=== PATIENT | male | born 1965 | race Hispanic/Latino ===

== ENCOUNTER 2017-07-05 10:52 | Emergency (ER) | payer BC ==
[2017-07-05] MEDS ORDERED: Lidocaine 1% (PF) 30 ML VIAL ONE (11:30)
[2017-07-05] MEDS ORDERED: Bacitracin Zinc 1 Packet ONE (13:21)
== END 2017-07-05 13:42 | disposition home or self-care (01) ==
LOC: ERS 10:52
DX: S91.312A Laceration without foreign body, left foot, initial encounter (principal); W18.2XXA Fall in (into) shower or empty bathtub, initial encounter
CPT/HCPCS: 12002; J2001

== ENCOUNTER 2017-08-31 19:57 | Emergency (ER) | payer BC ==
[2017-08-31 20:36] LABS: #Basophils 0.1 thou/uL (0.0-0.2); #Eosinphils 0.1 thou/uL (0.0-0.7); #Monocytes 0.4 thou/uL (0.11-0.59); #Neutrophils 4.9 thou/uL (1.40-6.50); %Basophils 0.7 % (0.0-1.0); %Eosinophils 0.9 % (0.0-10.0); %Monocytes 5.9 % (0.0-10.0); %Neutrophils 65.6 % (42.0-75.0); Hemoglobin 14.4 g/dL (14.0-18.0); Mean Corpuscular HGB CONC 34.6 g/dL (32.0-36.0); Mean Corpuscular Hemoglobin 31.1 pg (27.0-31.0); Mean Corpuscular Volume 89.9 fL (78.0-98.0); Mean Platelet Volume 7.5 fL (7.4-10.4); Platelet Count 237 thou/uL (130-400); RBC Distribution Width 12.3 % (11.5-14.5); Red Blood Cell (RBC) Count 4.62 mill/uL (4.70-6.10); White Blood Cell (WBC) Count 7.5 thou/uL (4.8-10.8)
[2017-08-31 20:57] LABS: ALT (SGPT) 32 U/L (8-55); AST (SGOT) 16 U/L (5-34); Albumin 4.3 g/dL (3.5-5.0); Alkaline Phosphatase 82 U/L (40-150); Anion Gap 12 mmol/L (10-20); BUN (Urea Nitrogen) 12 mg/dL (8.9-20.6); Bilirubin, Total 0.6 mg/dL (0.2-1.2); CK (CPK) 134 U/L (30-200); Calc. Creatinine Clearance 0 mL/min (70-130); Calcium 9.1 mg/dL (7.8-10.44); Carbon Dioxide 25 mmol/L (22-29); Chloride 107 mmol/L (98-107); Estimated GFR-MDRD 87; Globulin 3.3 g/dL (2.4-3.5); Glucose 119 mg/dL (70-105); Potassium 4.1 mmol/L (3.5-5.1); Protein, Total 7.6 g/dL (6.0-8.3); Sodium 140 mmol/L (136-145)
[2017-08-31 21:01] LABS: CKMB 1.2 ng/mL (0-6.6); Troponin I 0.015 ng/mL (< 0.028)
--- NOTE | 2017-08-31 21:59 | RAD ---
PORTABLE CHEST: History: Chest pain. FINDINGS: The lungs appear clear. Heart and mediastinum unremarkable. IMPRESSION: No acute process. POS: [facility]
[2017-08-31] MEDS ORDERED: Ketorolac Tromethamine 30 MG/ML VIAL ONE (23:21)
== END 2017-09-01 00:40 | disposition home or self-care (01) ==
LOC: ERS 19:57
DX: R07.89 Other chest pain (principal)
CPT/HCPCS: 71045; 80053; 82553; 84484; 85025; 93005; 96374; J1885

== ENCOUNTER 2022-10-10 08:49 | Outpatient (CLI) | payer BC | END 2022-10-10 08:50 | disposition home or self-care (01) | LOC: RAD 08:49 | PROVIDERS: ATTEND Otolaryngology Plastic Surgery within the Head & Neck | DX: R13.12 Dysphagia, oropharyngeal phase (principal); R63.30 Feeding difficulties, unspecified; K22.89 Other specified disease of esophagus | CPT/HCPCS: 74220; 74230 ==